=== PATIENT | male | born 1955 | race Caucasian/White ===

== ENCOUNTER 2020-08-13 09:11 | Inpatient (IN) | payer OTHER, SELFPAY ==
[2020-08-13] VITALS (104 sets, daily range): BP systolic 97–148; BP diastolic 53–93; PULSE 56–135; RESP 10–27; TEMP 36.4–36.5; O2SAT 99–100
--- NOTE | 2020-08-13 | DI.CT_ITS ---
Exam(s) CT CHEST/ABD W EXAM: CT CHEST/ABD W CLINICAL HISTORY: . TECHNIQUE: Imaging Protocol: Axial computed tomography images with coronal and sagittal reformatted images were created and reviewed. This study is of the chest and abdomen. The pelvis was not scanne d. CONTRAST MATERIAL: Intravenous: Omnipaque 350 Contrast volume:100 ml Oral: None COMPARISON: No exams were available for comparison FINDINGS: CHEST: LUNGS: Bullae are noted in the lung apices. There are no pulmonary infiltrates nor pleural effusions . No ominous pulmonary nodules. No findings in the trachea and mainstem bronchi. MEDIASTINUM: There is no hilar nor mediastinal adenopathy. Visualized thyroid unremarkable.Large mass in the lower esophagus-GE junction region-see below. CARDIAC: Heart size is normal. There is no pericardial effusion.Caliber of the thoracic aorta is wit hin normal limits. OSSEOUS: No significant osseous lesions.. ABDOMEN: There is no ascites. There is a large malignant-appearing mass in the lower esophagus-GE junction-pr oximal stomach which measures approximately 6 x 6.5 cm. Consistent with malignancy. Slightly enlarg ed lymph nodes are also noted in this region. LIVER: Multiple metastatic lesions are noted throughout both hepatic lobes. GALLBLADDER/BILIARY: Calcified gallstone noted in the lower gallbladder lumen. No gallbladder wall e yris. No pericholecystic fluid. CBD is not dilated. PANCREAS: No evidence of pancreatic mass nor dilatation of the pancreatic duct. SPLEEN: Spleen is not enlarged. There are no intrasplenic lesions. Splenic and portal veins are murillo nt. ADRENALS: There are no significant adrenal masses. KIDNEYS: There are benign cysts in both kidneys. One in each. The largest cyst is in the right kidn ey upper pole and measures 4 x 3.8 cm. No solid renal masses. No calculi nor hydronephrosis.. No c ysts evident. ABDOMINAL AORTA: The infrarenal abdominal aorta is atherosclerotic and the M exhibits maximum diamete r 2.4 cm. Atherosclerotic disease also involves aortic bifurcation. Iliac arteries is difficult to assess because this study does not include the pelvis. LYMPH NODES: There are few slightly enlarged abnormal appearing para-aortic lymph nodes. Also some r etroperitoneal adenopathy. ABDOMINAL WALL: No evidence of significant anterior abdominal wall hernia. GI: There is no evidence of bowel obstruction.Appendix not included in the field of view of this abdo men study. Sigmoid also not included. OSSEOUS: No lytic osseous lesions identified in the field of view of this chest and abdomen study. P ayde not included. IMPRESSION: 1. Please note that the pelvis was not scanned on this study. 2. There is a large malignant-appearing mass at the lower esophagus-GE junction and proximal stomach which is highly suspicious for malignancy and most probably responsible for the multiple metastatic l esions noted throughout both hepatic lobes. 3. There is also some retroperitoneal and para-aortic adenopathy. 4. No evidence of metastatic disease in the lungs. No lung nodules nor pleural effusions. No hilar nor mediastinal adenopathy. RADIATION DOSE DELIVERED: 672.03mGy.cm Total DLP DATA REPOSITORY: All CT scans at this facility are submitted to the National Radiology Data Registry (NRDR) Dose Index Registry (DIR) with the [employer] (ACR). RADIATION OPTIMIZATION: All CT scans at this facility use at least one of these dose optimization te chniques: automated exposure control; mA and/or kV adjustment per patient size (includes targeted exa ms where dose is matched to clinical indication); or iterative reconstruction.
--- NOTE | 2020-08-13 09:00 | RT.EKG_ITS ---
APPROVED REPORT Exam: Resting ECG Reason for Exam: weakness Patient Location: E HR:105 bpm ECG Measurements Heart Rate 105 AXIS IL 147 P 26 QRSd 109 QRS 43 QT 363 T 19 QTc 480 Conclusion Sinus tachycardia.PVC's, no st elev
--- NOTE | 2020-08-13 09:32 | ED.GENADUL_ITS ---
Discharge Plan Disposition Patient Disposition: [facility] INPATIENT Condition: Stable Discharge Details Clinical Impression: Esophageal mass Admit Date/Time: 08/13/20 15:29 Admit Provider: Britt Joshua Attending Provider: Britt Joshua Primary Care Provider: Cathy,Local ED Provider: Mikael Teixeira Medical Decision Making 65-year-old male presents from home stating he has had difficulty swallowing solid foods for 2 weeks, feeling that they get stuck. He switched himself to a liquid and soft diet. He now reports 2 weeks of generalized weakness and reports feeling shortness of breath with mild exertion. Denies chest pain. He also will report approximately 30 pound weight loss. This morning he felt so weak that he called the ambulance for transport. He does not have a local physician. Patient arrives to ER with a borderline resting tachycardia, he is pleasant, alert, interactive. Differential diagnosis is broad including achalasia, esophageal or thoracic mass, electrolyte abnormality, dehydration, thyroid abnormality, must exclude CHF or underlying cardiac event given his report of exertional dyspnea. Patient placed on a quality assurance monitor final, IV access established, screening labs obtained, EKG obtained, patient given fluids. Patient's laboratories show white count 7, hematocrit 28, platelets 80. Sodium 132, potassium 3.7, chloride 95, bicarb 21, BUN 19, creatinine 1.1. Calcium 8.6, total bili 1.6, AST 53, ALT 43, alk phos 191. BNP 239. Albumin 3.1, TSH 2.7. Troponin negative. CT images: Reviewed approximately 6 x 6 cm mass involving the distal esophagus and fundus. Also noted is numerous liver metastases measuring up to 4.5 cm. Case discussed with Dr. Oneal of [facility] gastroenterology. She agrees with urgent endoscopic evaluation with tissue diagnosis. Case subsequently discussed with Hospiytalist team and patient accepted by Dr Simon for transfer to [facility] tomorrow. HPI General Mode of arrival: EMS . Date/Time Provider Initiated Documentation: 08/13/20 09:35 . Limitations to Documentation: no limitations . Information obtained by: patient and EMS . History of Present Illness 65 year old M presents to the emergency department with the chief complaint of Difficulty swallowing, weight loss, generalized weakness for 2 weeks , described as moderate, Quality is described as dull and constant, Patient reports no radiation. Patient started experiencing this day(s) and it has b een constant. Rest improves symptom(s), Movement worsens symptoms . Patient notes loss of appetite and shortness of breath; denies chest pain, fever/chills, headaches and nausea/vomiting. Patient did receive the following treatments prior to arrival, none Related Data Home Medications Medication Instructions Recorded Confirmed Unknown [No Known Home Meds] 08/13/20 08/13/20 Allergies Allergy/AdvReac Type Severity Reaction Status Date / Time No Known Allergies Allergy Unverified 08/13/20 09:21 General Stated Complaint: GenMedical CRISTI: 3 Review of Systems Narrative: Reports history of GERD symptoms chronically. Smoked until recently 1 pack/day. No alcohol. Recently returned from living in [place], staying with a friend in [place], no local doctor. No chronic daily medications. [facility] Medical History Pelvic fracture TIA (transient ischemic attack) Social History Smoking/Tobacco Use Status: Former Tobacco Use Quit Date: 07/26/20 Smoking risk assessment performed?: Yes Alcohol Intake: never Drug use: Never Substance use type: does not use Do you feel safe at home: Yes Do you feel safe in your relationship?: Yes Exam Narrative Exam Narrative: GEN: awake, alert, oriented 3. Pleasant, well groomed, interactive. HEAD: Normocephalic, atraumatic ENT: Mucous membranes dry, oropharynx unremarkable-edentulous, External ear exam unremarkable EYES: PERRL, EOMI NECK: Full ROM, no JUNE, no menigismus CHEST/RESP: Nontender, clear to auscultation bilateral, no wheeze/rhonchi/rales CARDIOVASCULAR: Borderline resting tachycardia, regular, pulse approximately 90- 100, distant, no murmur, rub philippe. 2+ Rad pulse bilateral ABDOMEN: Soft, nontender, no mass. +Bowel sounds EXT: Full ROM, no edema, no rash. Tobacco stains on fingertips. Neuro: Grossly normal neurologic exam, conversant, interactive. Psych: Speech fluent, thoughts congruent, affect normal Course Vital Signs Vital signs: Vital Signs Temperature 36.5 C 08/13/20 09:14 Pulse 108 H 08/13/20 09:14 Pulse Oximetry 100 08/13/20 09:14 Temperature 36.5 C 08/13/20 09:14 Temperature Source Temporal Artery Scan 08/13/20 09:14 Pulse 108 H 08/13/20 09:14 Respiratory Rate 20 08/13/20 09:26 Respiratory Effort 08/13/20 09:26 Respiratory Depth Normal 08/13/20 09:26 Respiratory Pattern Normal 08/13/20 09:26 Blood Pressure Position Sitting 08/13/20 09:14 Pulse Oximetry 100 08/13/20 09:14 Oxygen Delivery Method Room Air 08/13/20 09:14 Oxygen Flow Rate 0 08/13/20 09:14 Pain Level 0 08/13/20 09:14
[2020-08-13] MEDS: Normal Saline 1,000 ML 150 ML IV ×2 (09:40→17:35)
[2020-08-13 09:41] LABS: Abs Immature Grans 0.09 10^3/uL (0.0-0.06); Absolute Basophil Count 0.04 10^3/uL (0.0-0.2); Absolute Eosinophil Count 0.08 10^3/uL (0.0-0.7); Absolute Lymphocyte Count 1.77 10^3/uL (1.2-3.4); Absolute Monocyte Count 0.58 10^3/uL (0.1-0.8); Absolute Neutrophil Count 4.88 10^3/uL (1.2-6.7); Basophils % 0.5; Eosinophils % 1.1; HCT 28.3 % (40.0-50.0); HGB 9.5 g/dL (13.5-17.5); Immature Grans % 1.2; Lymphocytes % 23.8; MCHC 33.6 % (32.0-36.0); MCV 86.3 fL (80-95); MPV 11.1 fL (8.0-11.0); Monocytes % 7.8; Neutrophils % 65.6; Nucleated RBC 2 %; RBC 3.28 10^6/uL (4.36-5.78); RDW 17.6 % (11.8-14.1); RDW-SD 52.7 fL; WBC 7.44 10^3/uL (4.4-10.8)
[2020-08-13 09:57] LABS: Platelet Count 80 10^3/uL (130-400)
[2020-08-13 10:00] LABS: ALT 43 U/L (16-63); AST 53 U/L (15-37); Albumin 3.1 g/dL (3.4-5.0); Alkaline Phosphatase 191 U/L (46-116); Anion Gap 15.9 mmol/L (3-11); BUN 19 mg/dL (7-18); Bilirubin, Total 1.6 mg/dL (0.2-1.0); CO2 21.1 mmol/L (21.0-32.0); CREATININE 1.1 mg/dL (0.70-1.30); Calcium 8.6 mg/dL (8.5-10.1); Chloride 95 mmol/L (98-107); Glucose 115 mg/dL (74-106); Potassium 3.7 mmol/L (3.5-5.1); Sodium 132 mmol/L (136-145); TSH 2.71 uIU/mL (0.36-3.74); Total Protein 6.4 g/dL (6.4-8.2); Troponin I < 0.05 ng/mL (<0.06)
--- NOTE | 2020-08-13 10:09 | DI.CT_ITS ---
Exam(s) CT NECK W EXAM: CT NECK W CLINICAL HISTORY: dysphagia, transit difficulty, weight loss, smoker. TECHNIQUE: Imaging Protocol: Axial CT angiography was performed with multi-slice acquisition and mu lti-planar and/or 3D reconstructions. CONTRAST MATERIAL: Intravenous: Omnipaque 350 Contrast volume:100 cc COMPARISON: No exams were available for comparison FINDINGS: Multiple bullae are noted in the lung apices bilaterally. Tissues of nasopharynx are symmetrical. Uvula is midline. There is no evidence of abnormal mass in the oral pharynx nor in the hypopharynx. Free edge of the epiglottis appears unremarkable as do the vallecula I. aryepiglottic folds appear unremarkable. No obvious mass at the level of the vocal cord s and subglottic airway. Thyroid gland exhibits normal size. No obvious nodules. Parotid and submandibular glands appear unremarkable. No masses nor calculi. There is no significant adenopathy in the neck and supraclavicular regions. Injection rate is inadequate for details study of the carotid bifurcation and proximal internal carot id arteries. Visualized orbits unremarkable. Visualized paranasal sinuses unremarkable. \ IMPRESSION: 1. No significant focal findings in the soft tissues of the neck. 2. No significant lymphadenopathy evident. RADIATION DOSE DELIVERED: Total DLP DATA REPOSITORY: All CT scans at this facility are submitted to the National Radiology Data Registry (NRDR) Dose Index Registry (DIR) with the [employer] (ACR). RADIATION OPTIMIZATION: All CT scans at this facility use at least one of these dose optimization te chniques: automated exposure control; mA and/or kV adjustment per patient size (includes targeted exa ms where dose is matched to clinical indication); or iterative reconstruction.
[2020-08-13 10:20] LABS: NT-proBNP 239 pg/mL (<300)
[2020-08-13] MEDS: Ondansetron 4 MG/2 ML VIAL IVP (10:21)
[2020-08-13] MEDS: Omnipaque 350 MG/ML 100 ML BTL IV (11:24)
[2020-08-13 12:05] LABS: Bilirubin Negative (Negative); Blood Trace-intact (Negative); Clarity Clear (Clear); Glucose Negative (Negative); Ketones 15 mg/dL (Negative); Leukocyte Esterase Negative (Negative); Nitrite Negative (Negative); Specific Gravity <= 1.005 (1.005-1.025); pH 5.5 (5-8)
[2020-08-13 12:15] LABS: Bacteria Negative HPF (Negative); C & S Indicated? No; Casts Negative LPF (Negative); Crystals Negative HPF (Negative); Epithelial Cells Few HPF (Negative); Mucus Trace (Negative); WBC Negative HPF (0-5)
--- NOTE | 2020-08-13 12:22 | DI.VRAD_ITS ---
PROCEDURE INFORMATION: Exam: CT Neck With Contrast Exam date and time: 08/13/2020 11:06 AM Age: 65 years old Clinical indication: Other: Dysphagia, transit difficulty TECHNIQUE: Imaging protocol: Computed tomography images of the neck with contrast. Radiation optimization: All CT scans at this facility use at least one of these dose optimization techniques: automated exposure control; mA and/or kV adjustment per patient size (includes targeted exams where dose is matched to clinical indication); or iterative reconstruction. Contrast material: OMNIPAQUE 350; Contrast volume: 100 ml; Contrast route: INTRAVENOUS (IV); COMPARISON: CT CHEST/ABD W 08/13/2020 10:57 AM FINDINGS: Nasopharynx: Unremarkable. Oropharynx: Unremarkable. No significant tonsillar enlargement. Hypopharynx: Unremarkable. Larynx: Unremarkable. Normal epiglottis. Retropharyngeal space: Unremarkable. Submandibular/Parotid glands: Normal. Glands are normal in size. Thyroid: Normal. No enlarged or calcified nodules. Lymph nodes: Unremarkable. No lymphadenopathy. Trachea: Visualized trachea is unremarkable. Lungs: Diffuse emphysematous changes. Bones/joints: Diffuse degenerative changes cervical spine. Soft tissues: Unremarkable. No significant soft tissue swelling. IMPRESSION: Degenerative changes cervical spine otherwise negative study. Dictated and Authenticated by: Arsen Rabago MD. Ordering:NI Youssef MD
--- NOTE | 2020-08-13 12:25 | DI.VRAD_ITS ---
PROCEDURE INFORMATION: Exam: CT Chest With Contrast; Diagnostic Exam date and time: 08/13/2020 10:20 AM Age: 65 years old Clinical indication: Other: Dysphagia, transit difficulty weight loss, smoker TECHNIQUE: Imaging protocol: Diagnostic computed tomography of the chest with contrast. 3D rendering (Not supervised by radiologist): MIP and/or 3D reconstructed images were created by the technologist. Radiation optimization: All CT scans at this facility use at least one of these dose optimization techniques: automated exposure control; mA and/or kV adjustment per patient size (includes targeted exams where dose is matched to clinical indication); or iterative reconstruction. Contrast material: OMNIPAQUE 350; Contrast volume: 100 ml; Contrast route: INTRAVENOUS (IV); COMPARISON: No relevant prior studies available. FINDINGS: Lungs: Advanced emphysematous changes in the upper lobes. Pleural spaces: Unremarkable. No pneumothorax. No pleural effusion. Heart: Unremarkable. No cardiomegaly. No pericardial effusion. Mediastinal space: There is a distal circumferential esophageal lobulated mass. The mass involves the fundus of the stomach. Mass measures 6.2 x 6.0 x 5.9 cm. Aorta: Unremarkable. No aortic aneurysm. Lymph nodes: Unremarkable. No enlarged lymph nodes. Bones/joints: Unremarkable. No acute fracture. Soft tissues: Unremarkable. IMPRESSION: Large distal esophageal/gastric fundus mass which is nearly obstructing the esophagus. PROCEDURE INFORMATION: Exam: CT Abdomen And Pelvis With Contrast Exam date and time: 08/13/2020 10:20 AM Age: 65 years old Clinical indication: Other: Dysphagia, transit difficulty weight loss, smoker TECHNIQUE: Imaging protocol: Computed tomography of the abdomen and pelvis with contrast. 3D rendering (Not supervised by radiologist): MIP and/or 3D reconstructed images were created by the technologist. Contrast material: OMNIPAQUE 350; Contrast volume: 100 ml; Contrast route: INTRAVENOUS (IV); COMPARISON: No relevant prior studies available. FINDINGS: Mediastinal space: There is a distal circumferential esophageal lobulated mass. The mass involves the fundus of the stomach. Mass measures 6.2 x 6.0 x 5.9 cm. Liver: Innumerable liver metastasis involving every segment of the liver. Metastasis measure up to 4.5 cm. Gallbladder and bile ducts: Cholelithiasis. No gallbladder wall thickening. Pancreas: Normal. No ductal dilation. Spleen: Normal. No splenomegaly. Adrenal glands: Normal. No mass. Kidneys and ureters: Posterior right renal cyst measuring 3.6 cm. Inferior left renal cyst measuring 1.4 cm. Stomach and bowel: See Mediastinal space finding. Appendix: No evidence of appendicitis. Intraperitoneal space: Unremarkable. No free air. No significant fluid collection. Vasculature: Unremarkable. No abdominal aortic aneurysm. Lymph nodes: Liliana esophageal Liliana gastric fundus adenopathy measuring 4.9 x 3.8 x 2.2 cm. Retroperitoneal adenopathy measuring up to 3.6 cm Urinary bladder: Unremarkable as visualized. Reproductive: Unremarkable as visualized. Bones/joints: Unremarkable. No acute fracture. Soft tissues: Unremarkable. Other findings: . IMPRESSION: 1. Large distal esophageal gastric fundus mass which is nearly obstructing the esophagus. 2. Extensive periesophageal and retroperitoneal adenopathy. 3. Extensive liver metastasis. 4. Findings were discussed with GREGG ARDON at 08/13/2020 12:25 PM EDT. Dictated and Authenticated by: Ming Foote MD. Ordering:NI Youssef MD
[2020-08-13 13:14] LABS: Troponin I < 0.05 ng/mL (<0.06)
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
[2020-08-13 16:58] LABS: COVID-19 PCR Negative (Negative)
[2020-08-13] MEDS: Pantoprazole 40 MG VIAL IVP (18:50)
[2020-08-13] MEDS: Normal Saline Flush 10 ML SYR IVP (19:05)
[2020-08-13] MEDS: Heparin 5,000 UNITS/ML VIAL 5000 UNITS SC (20:35)
[2020-08-14] MEDS: Normal Saline 1,000 ML 150 ML IV ×2 (00:28→06:43)
[2020-08-14 00:50] VITALS: BP 105/73; PULSE 88; RESP 14; TEMP 36.3; O2SAT 100
[2020-08-14 07:37] LABS: Abs Immature Grans 0.08 10^3/uL (0.0-0.06); Absolute Basophil Count 0.03 10^3/uL (0.0-0.2); Absolute Lymphocyte Count 1.21 10^3/uL (1.2-3.4); Absolute Monocyte Count 0.47 10^3/uL (0.1-0.8); Absolute Neutrophil Count 3.58 10^3/uL (1.2-6.7); Basophils % 0.5; Eosinophils % 1.8; Immature Grans % 1.5; Lymphocytes % 22.1; MCH 28.9 pg (27.0-33.0); MCHC 33.2 % (32.0-36.0); MCV 87.1 fL (80-95); Monocytes % 8.6; Neutrophils % 65.5; Nucleated RBC 1 %; Platelet Count 61 10^3/uL (130-400); RBC 2.56 10^6/uL (4.36-5.78); RDW 17.7 % (11.8-14.1); RDW-SD 54.5 fL; WBC 5.47 10^3/uL (4.4-10.8)
[2020-08-14 07:58] LABS: Anion Gap 15.9 mmol/L (3-11); BUN 13 mg/dL (7-18); CO2 17.1 mmol/L (21.0-32.0); CREATININE 0.7 mg/dL (0.70-1.30); Calcium 7.8 mg/dL (8.5-10.1); Chloride 101 mmol/L (98-107); Glucose 81 mg/dL (74-106); HCT 22.3 % (40.0-50.0); HGB 7.4 g/dL (13.5-17.5); Potassium 3.5 mmol/L (3.5-5.1); Sodium 134 mmol/L (136-145)
[2020-08-14 08:13] VITALS: BP 103/70; PULSE 87; RESP 18; TEMP 36.4; O2SAT 99
[2020-08-14 08:28] LABS: ALT 32 U/L (16-63); AST 45 U/L (15-37); Albumin 2.4 g/dL (3.4-5.0); Alkaline Phosphatase 140 U/L (46-116); Bilirubin, Direct 0.6 mg/dL (0.0-0.2); Bilirubin, Total 1.3 mg/dL (0.2-1.0); Total Protein 4.9 g/dL (6.4-8.2)
[2020-08-14] MEDS: Pantoprazole 40 MG VIAL IVP (08:53)
[2020-08-14] MEDS: Heparin 5,000 UNITS/ML VIAL 5000 UNITS SC (08:53)
[2020-08-14] MEDS: MULTIVITAMIN 10 ML, THIAMINE 100 MG, FOLIC ACID 1 MG in DEXTROSE 5%-0.45% SALINE 1,000 ML 125 ML IV (10:43)
--- NOTE | 2020-08-14 11:43 | W.PM.DS.N ---
Date of service: 08/14/20 Time of Service: 11:43 DS: Diagnosis Discharge Diagnosis (1) Esophageal mass: Start date: 08/14/20 Start time: 11:44 Status: Acute Asessment and Plan: Found by imaging in the ED yesterday after having 30-40 lb wt loss and not being able to swallow regular diet, then not being able to swallow liquid diet. He was found to have Large esophageal mass present on CT 6x6 cm with Liver mets as well. NPO, accepted to hospitalist [facility] bed available in am. GI is aware and accepts patient for endoscopy with tissue sampling at [facility] He is being transferred there to [facility] (2) Liver metastasis: Start date: 08/14/20 Start time: 11:47 Status: Acute Asessment and Plan: as above discussed with Dr. Joshua Discharge Plan Disposition Patient Disposition: [facility] Condition: Stable Discharge Details Reason For Visit: Dysphagia,Liver cancer Admit Date/Time: 08/13/20 15:29 Admit Provider: Britt Joshua Attending Provider: Britt Joshua Primary Care Provider: Cathy,[facility] Course Hospital Course: 65 y.o male with PMH of GERD and tobacco use, presented to [facility] with difficulty swallowing x the last 2 weeks. He stated that he was initially having difficulty swallowing solid food switched to liquid then started having difficulty with liquid food prompting him to visit. He also reports 30-40 lb wt loss in the last couple of weeks. He travels back and forth from [place] during the year and currently does not have a PCP. Labs in the ED reveal h/h 9.5/28.3, sodium 132, anion gap 15.9 BUN 19, AST 53, Bilirubin 1.[address] reveals large 6x6 cm distal esophageal/gastric fundus mass which is nearly obstructing the esophagus. Liver mets aslo noted measuring up to 4.5 cm. He has been accepted by [facility] GI Dr. Oneal, case discussed by ED provider Dr. Teixeira and patient was accepted by Hospitalist at [facility] Dr. Simon for transfer to [facility] tomorrow. Until then we will accept to the floor as inpatient until transfer. He will be NPO. IVF at 150 an hour. IV antiemetics and analgesics for pain. He has been accepted for bed placement today. He did have drop in h/h today from 9 to 7. He denies bloody stool, though his urine does appear to have a bloody tinge. Heparin held. He has been NPO and placed on banana bag for nutrition. He is being transferred to [address] Home Meds and New Rx's Prescriptions: No Action No Known Home Meds RF: 0 Discharge Instructions Activity:: bedrest Diet:: NPO Discharge Orders Discharge Orders: Discharge Order (Routine); Ordered 08/14/20 Ordered By: Indiana Armenta DS: Summary Time Spent with Patient providing and/or coordinating discharge services: Less than 30 minutes Status at Discharge Functional status at discharge: bed bound Overall status at discharge: patient is not back to baseline Mental Status: mental status grossly normal Speech and Movement: speech and movement normal Mood: congruent mood Affect: normal affect Exam Const General: cooperative, not healthy appearing, not well developed, disheveled, frail appearing, ill appearing chronically and other (older than stated age) Nutritional Appearance: average body habitus Orientation: alert, awake and oriented x3 HENMT Head: normal to inspection, normocephalic and atraumatic Face and sinus: normal facial exam Mouth: moist mucous membranes Teeth and gingiva: abnormal dentition Eyes General: appearance normal, both eyes and all related structures Pupils: PERRL EOM: EOM intact bilaterally Neck Neck: normal visual inspection, full ROM and no JVD Lymphatic: no lymphadenopathy noted Chest Chest: normal inspection of the chest Resp Effort & Inspection: normal respiratory effort and able to speak in complete sentences Auscultation: clear to auscultation bilaterally Cardio Jugular venous pressure: no JVD Rate: regular rate Rhythm: regular rhythm Heart Sounds: S1 normal and S2 normal GI Inspection: normal to inspection Palpation: soft Auscultation: normal bowel sounds General: No CVA tenderness and deferred Skin General skin exam: no rashes or lesions noted Nails: nails abnormal, discolored and yellow and thickened Neuro General: patient alert, patient awake and patient oriented x3 Extrem General: full ROM, no clubbing, cyanosis or edema and other Left lower extremity: foot; abnormal to inspection Psych Appearance: disheveled Mental Status: mental status grossly normal Speech and Movement: speech and movement normal Mood: congruent mood Affect: normal affect Attitude: cooperative Thought Content: normal Insight: limited Judgment: limited DS: Data Vitals/I&O Vitals and I&O: Vital Signs Temperature 36.4 C L 08/14/20 08:13 Temperature Source Tympanic 08/14/20 08:13 Pulse 87 08/14/20 08:13 Pulse Rhythm Regular 08/14/20 00:50 Pulse 86 08/13/20 16:20 Respiratory Rate 18 08/14/20 08:13 Respiratory Effort Non-Labored 08/14/20 00:50 Respiratory Depth Normal 08/14/20 00:50 Respiratory Pattern Normal 08/14/20 00:50 Blood Pressure 103/70 08/14/20 08:13 Blood Pressure Mean 92 08/13/20 16:15 Blood Pressure Position Sitting 08/13/20 09:14 Pulse Oximetry 99 08/14/20 08:13 Oxygen Delivery Method Room Air 08/14/20 08:13 Oxygen Flow Rate 0 08/14/20 08:13 Pain Level 0 08/14/20 08:13 Intake & Output 08/13/20 08/13/20 08/14/20 11:59 23:59 11:59 Intake Total 10 / 1135 1125 / 1135 2537.5 / 2537.5 Output Total 350 / 350 200 / 200 Balance 10 / 785 775 / 785 2337.5 / 2337.5 Weight 74.3 kg Intake: IV 10 / 1010 1000 / 1010 2537.5 / 2537.5 Oral 125 / 125 Output: Urine 350 / 350 200 / 200 Other: Urine Color Dark Lisa Light Lisa Urine Appearance Clear Urine Odor None Voiding Methods Urinal Urinal Data Completed and Pending Completed studies during hospitalization [Text1]: Exam(s) a CT:CT neck w Exam(s) CT NECK W EXAM: CT NECK W CLINICAL HISTORY: dysphagia, transit difficulty, weight loss, smoker. TECHNIQUE: Imaging Protocol: Axial CT angiography was performed with multi-slice acquisition and multi-planar and/or 3D reconstructions. CONTRAST MATERIAL: Intravenous: Omnipaque 350 Contrast volume:100 cc COMPARISON: No exams were available for comparison FINDINGS: Multiple bullae are noted in the lung apices bilaterally. Tissues of nasopharynx are symmetrical. Uvula is midline. There is no evidence of abnormal mass in the oral pharynx nor in the hypopharynx. Free edge of the epiglottis appears unremarkable as do the vallecula I. aryepiglottic folds appear unremarkable. No obvious mass at the level of the vocal cords and subglottic airway. Thyroid gland exhibits normal size. No obvious nodules. Parotid and submandibular glands appear unremarkable. No masses nor calculi. There is no significant adenopathy in the neck and supraclavicular regions. Injection rate is inadequate for details study of the carotid bifurcation and proximal internal carotid arteries. Visualized orbits unremarkable. Visualized paranasal sinuses unremarkable. \ IMPRESSION: 1. No significant focal findings in the soft tissues of the neck. 2. No significant lymphadenopathy evident. Exam(s) a CT:CT chest/abd w Exam(s) CT CHEST/ABD W EXAM: CT CHEST/ABD W CLINICAL HISTORY: . TECHNIQUE: Imaging Protocol: Axial computed tomography images with coronal and sagittal reformatted images were created and reviewed. This study is of the chest and abdomen. The pelvis was not scanned. CONTRAST MATERIAL: Intravenous: Omnipaque 350 Contrast volume:100 ml Oral: None COMPARISON: No exams were available for comparison FINDINGS: CHEST: LUNGS: Bullae are noted in the lung apices. There are no pulmonary infiltrates nor pleural effusions. No ominous pulmonary nodules. No findings in the trachea and mainstem bronchi. MEDIASTINUM: There is no hilar nor mediastinal adenopathy. Visualized thyroid unremarkable.Large mass in the lower esophagus-GE junction region-see below. CARDIAC: Heart size is normal. There is no pericardial effusion.Caliber of the thoracic aorta is within normal limits. OSSEOUS: No significant osseous lesions.. ABDOMEN: There is no ascites. There is a large malignant-appearing mass in the lower esophagus-GE junction-proximal stomach which measures approximately 6 x 6.5 cm. Consistent with malignancy. Slightly enlarged lymph nodes are also noted in this region. LIVER: Multiple metastatic lesions are noted throughout both hepatic lobes. GALLBLADDER/BILIARY: Calcified gallstone noted in the lower gallbladder lumen. No gallbladder wall edema. No pericholecystic fluid. CBD is not dilated. PANCREAS: No evidence of pancreatic mass nor dilatation of the pancreatic duct. SPLEEN: Spleen is not enlarged. There are no intrasplenic lesions. Splenic and portal veins are patent. ADRENALS: There are no significant adrenal masses. KIDNEYS: There are benign cysts in both kidneys. One in each. The largest cyst is in the right kidney upper pole and measures 4 x 3.8 cm. No solid renal masses. No calculi nor hydronephrosis.. No cysts evident. ABDOMINAL AORTA: The infrarenal abdominal aorta is atherosclerotic and the M exhibits maximum diameter 2.4 cm. Atherosclerotic disease also involves aortic bifurcation. Iliac arteries is difficult to assess because this study does not include the pelvis. LYMPH NODES: There are few slightly enlarged abnormal appearing para-aortic lymph nodes. Also some retroperitoneal adenopathy. ABDOMINAL WALL: No evidence of significant anterior abdominal wall hernia. GI: There is no evidence of bowel obstruction.Appendix not included in the field of view of this abdomen study. Sigmoid also not included. OSSEOUS: No lytic osseous lesions identified in the field of view of this chest and abdomen study. Pelvis not included. IMPRESSION: 1. Please note that the pelvis was not scanned on this study. 2. There is a large malignant-appearing mass at the lower esophagus-GE junction and proximal stomach which is highly suspicious for malignancy and most probably responsible for the multiple metastatic lesions noted throughout both hepatic lobes. 3. There is also some retroperitoneal and para-aortic adenopathy. 4. No evidence of metastatic disease in the lungs. No lung nodules nor pleural effusions. No hilar nor mediastinal adenopathy. : 4Age: 65 Exam(s) PROCEDURE INFORMATION: Exam: CT Neck With Contrast Exam date and time: 08/13/2020 11:06 AM Age: 65 years old Clinical indication: Other: Dysphagia, transit difficulty TECHNIQUE: Imaging protocol: Computed tomography images of the neck with contrast. Radiation optimization: All CT scans at this facility use at least one of these dose optimization techniques: automated exposure control; mA and/or kV adjustment per patient size (includes targeted exams where dose is matched to clinical indication); or iterative reconstruction. Contrast material: OMNIPAQUE 350; Contrast volume: 100 ml; Contrast route: INTRAVENOUS (IV); COMPARISON: CT CHEST/ABD W 08/13/2020 10:57 AM FINDINGS: Nasopharynx: Unremarkable. Oropharynx: Unremarkable. No significant tonsillar enlargement. Hypopharynx: Unremarkable. Larynx: Unremarkable. Normal epiglottis. Retropharyngeal space: Unremarkable. Submandibular/Parotid glands: Normal. Glands are normal in size. Thyroid: Normal. No enlarged or calcified nodules. Lymph nodes: Unremarkable. No lymphadenopathy. Trachea: Visualized trachea is unremarkable. Lungs: Diffuse emphysematous changes. Bones/joints: Diffuse degenerative changes cervical spine. Soft tissues: Unremarkable. No significant soft tissue swelling. IMPRESSION: Degenerative changes cervical spine otherwise negative study. Exam(s) PROCEDURE INFORMATION: Exam: CT Chest With Contrast; Diagnostic Exam date and time: 08/13/2020 10:20 AM Age: 65 years old Clinical indication: Other: Dysphagia, transit difficulty weight loss, smoker TECHNIQUE: Imaging protocol: Diagnostic computed tomography of the chest with contrast. 3D rendering (Not supervised by radiologist): MIP and/or 3D reconstructed images were created by the technologist. Radiation optimization: All CT scans at this facility use at least one of these dose optimization techniques: automated exposure control; mA and/or kV adjustment per patient size (includes targeted exams where dose is matched to clinical indication); or iterative reconstruction. Contrast material: OMNIPAQUE 350; Contrast volume: 100 ml; Contrast route: INTRAVENOUS (IV); COMPARISON: No relevant prior studies available. FINDINGS: Lungs: Advanced emphysematous changes in the upper lobes. Pleural spaces: Unremarkable. No pneumothorax. No pleural effusion. Heart: Unremarkable. No cardiomegaly. No pericardial effusion. Mediastinal space: There is a distal circumferential esophageal lobulated mass. The mass involves the fundus of the stomach. Mass measures 6.2 x 6.0 x 5.9 cm. Aorta: Unremarkable. No aortic aneurysm. Lymph nodes: Unremarkable. No enlarged lymph nodes. Bones/joints: Unremarkable. No acute fracture. Soft tissues: Unremarkable. IMPRESSION: Large distal esophageal/gastric fundus mass which is nearly obstructing the esophagus. Labs on day of discharge: Labs from last 24 hours 08/14/20 08/14/20 08/14/20 12:00 06:33 06:33 WBC RBC Hgb Pending Hct Pending MCV MCH MCHC RDW Plt Count MPV Immature Gran % Neutrophils % Lymphocytes % Monocytes % Eosinophils % Basophils % Nucleated RBC % Absolute Neutrophils Absolute Lymphocytes Absolute Monocytes Absolute Eosinophils Absolute Basophils Sodium Potassium Chloride Carbon Dioxide Anion Gap BUN Creatinine Estimated GFR/1.73 m2 Glucose Calcium Total Bilirubin 1.3 H Conjugated Bilirubin 0.6 H AST 45 H ALT 32 Alkaline Phosphatase 140 H Troponin I Total Protein 4.9 L Albumin 2.4 L Urine Color Urine Clarity Urine pH Ur Specific [place] Urine Protein Urine Ketones Urine Blood Urine Nitrite Urine Bilirubin Urine Urobilinogen Ur Leukocyte Esterase Urine RBC Urine WBC Ur Epithelial Cells Urine Crystals Urine Bacteria Urine Casts Urine Mucus Ur Culture Indicated? Urine Glucose COVID-19 Source SARS-CoV-2 (PCR) HIV 1&2 Ag/Ab, 4th Gen Pending HIV 1&2 Antibody Rapid 08/14/20 08/14/20 08/14/20 06:33 06:33 05:35 WBC 5.47 RBC 2.56 L Hgb 7.4 L D Hct 22.3 L D MCV 87.1 MCH 28.9 MCHC 33.2 RDW 17.7 H Plt Count 61 L MPV 12.0 H Immature Gran % 1.5 Neutrophils % 65.5 Lymphocytes % 22.1 Monocytes % 8.6 Eosinophils % 1.8 Basophils % 0.5 Nucleated RBC % 1 Absolute Neutrophils 3.58 Absolute Lymphocytes 1.21 Absolute Monocytes 0.47 Absolute Eosinophils 0.10 Absolute Basophils 0.03 Sodium 134 L Potassium 3.5 Chloride 101 Carbon Dioxide 17.1 L Anion Gap 15.9 H BUN 13 D Creatinine 0.7 Estimated GFR/1.73 m2 >= 60.00 Glucose 81 Calcium 7.8 L Total Bilirubin Conjugated Bilirubin AST ALT Alkaline Phosphatase Troponin I Total Protein Albumin Urine Color Urine Clarity Urine pH Ur Specific [place] Urine Protein Urine Ketones Urine Blood Urine Nitrite Urine Bilirubin Urine Urobilinogen Ur Leukocyte Esterase Urine RBC Urine WBC Ur Epithelial Cells Urine Crystals Urine Bacteria Urine Casts Urine Mucus Ur Culture Indicated? Urine Glucose COVID-19 Source SARS-CoV-2 (PCR) HIV 1&2 Ag/Ab, 4th Gen HIV 1&2 Antibody Rapid Cancelled 08/13/20 08/13/20 08/13/20 15:10 12:40 11:58 WBC RBC Hgb Hct MCV MCH MCHC RDW Plt Count MPV Immature Gran % Neutrophils % Lymphocytes % Monocytes % Eosinophils % Basophils % Nucleated RBC % Absolute Neutrophils Absolute Lymphocytes Absolute Monocytes Absolute Eosinophils Absolute Basophils Sodium Potassium Chloride Carbon Dioxide Anion Gap BUN Creatinine Estimated GFR/1.73 m2 Glucose Calcium Total Bilirubin Conjugated Bilirubin AST ALT Alkaline Phosphatase Troponin I < 0.05 Total Protein Albumin Urine Color Yellow Urine Clarity Clear Urine pH 5.5 Ur Specific [place] <= 1.005 Urine Protein Negative Urine Ketones 15 H Urine Blood Trace-intact H Urine Nitrite Negative Urine Bilirubin Negative Urine Urobilinogen 2.0 H Ur Leukocyte Esterase Negative Urine RBC 3-5 H Urine WBC Negative Ur Epithelial Cells Few Urine Crystals Negative Urine Bacteria Negative Urine Casts Negative Urine Mucus Trace Ur Culture Indicated? No Urine Glucose Negative COVID-19 Source Nasopharyx SARS-CoV-2 (PCR) Negative HIV 1&2 Ag/Ab, 4th Gen HIV 1&2 Antibody Rapid [facility] Medical History Pelvic fracture TIA (transient ischemic attack) Social History Smoking/Tobacco Use Status: Former Tobacco Use Quit Date: 07/26/20 Smoking risk assessment performed?: Yes Alcohol Intake: never Drug use: Never Substance use type: does not use Do you feel safe at home: Yes Do you feel safe in your relationship?: Yes
[2020-08-15 10:22] LABS: HIV-1/2 Ag & Ab Screen Negative (Negative)
== END 2020-08-14 13:33 | disposition short-term general hospital (02) | DRG 392 ==
LOC: ER 15:47 → MS 16:48
PROVIDERS: Nurse Practitioner Family; Admitting Provider Internal Medicine; Emergency Provider Emergency Medicine; Visit Provider Internal Medicine
DX: K22.8 Other specified diseases of esophagus (principal); C78.7 Secondary malignant neoplasm of liver and intrahepatic bile duct; K21.9 Gastro-esophageal reflux disease without esophagitis; F17.210 Nicotine dependence, cigarettes, uncomplicated; R63.4 Abnormal weight loss; Z68.24 Body mass index [BMI] 24.0-24.9, adult; Z20.822 Contact with and (suspected) exposure to COVID-19
CPT/HCPCS: 36415; 70491; 80048; 80053; 80076; 87389; 87635; 93005; 96361; 96374; 99285; 71260; 74160; 81003; 81015; 83735; 83880; 84443; 84484; 85014; 85018; 85025; 93010; 99223; 99238; 99284; J1644; J2405; J3490